=== PATIENT | male | born 1965 | race Caucasian/White ===

== ENCOUNTER 2018-03-08 16:08 | Inpatient (IN) | payer OTHER ==
[~2018-03-08] VITALS: Ht 182.9 cm; Wt 94.9 kg
[2018-03-08 17:32] LABS: BASOPHIL % 1.2 % (0-2); PLATELET COUNT 289 x10^3mcL (130-400)
[2018-03-08 17:37] LABS: CALCIUM 8.4 mg/dL (8.5-10.1); CARBON DIOXIDE 24.7 mmol/L (21-32); CHLORIDE SERUM 105 mmol/L (98-107); CREATININE SERUM 0.8 mg/dL (0.7-1.3); GFR1 > 60 mL/min; GLUCOSE SERUM 129 mg/dL (74-106); POTASSIUM SERUM 3.9 mmol/L (3.5-5.1); SODIUM SERUM 139 mmol/L (136-145)
[2018-03-08 17:40] LABS: RED CELL DISTRIBUTION WIDTH 15.8 % (11.5-14.5)
[2018-03-08 17:49] LABS: ALKALINE PHOSPHATASE 112 U/L (46-116); ALT/SGPT 21 U/L (16-63); AST/SGOT 15 U/L (15-37); BILIRUBIN TOTAL 0.21 mg/dL (0.20-1.00); TOTAL PROTEIN, SERUM 6.2 g/dL (6.4-8.2)
[2018-03-08 17:52] LABS: ALBUMIN 2.8 g/dL (3.4-5.0); T4(THYROXINE) 4.4 ug/dL (4.7-13.3)
[2018-03-08 19:31] LABS: AMPHETAMINE QUAL UR POSITIVE (See below)
[2018-03-09] MEDS ORDERED: SEROQUEL25 MG (15:37)
[2018-03-09] MEDS ORDERED: BUS5 (15:37)
[2018-03-09] MEDS ORDERED: ALPRAZOLAM1 MG (19:26)
[2018-03-09 19:42] VITALS: BP 123/76
[2018-03-10 06:08] VITALS: BP 109/68
[2018-03-10 07:35] LABS: CHOLESTEROL/HDL RATIO 2.9; MAGNESIUM 1.8 mg/dL (1.8-2.4); PHOSPHOROUS 3.2 mg/dL (2.5-4.9)
[2018-03-10 07:56] LABS: T3 TOTAL 0.69 ng/mL
[2018-03-10 10:17] VITALS: BP 119/74
[2018-03-10 11:17] LABS: FREE T4 0.76 ng/dL (0.76-1.46); FREE THYROXINE INDEX 1.9 ug/dL (1.4-4.5); T4(THYROXINE) 5.2 ug/dL (4.7-13.3)
[2018-03-10 13:40] VITALS: BP 128/76
[2018-03-10 14:42] VITALS: BP 137/80
[2018-03-10 18:06] VITALS: BP 123/77
[2018-03-10 22:45] VITALS: BP 109/78
[2018-03-11 05:36] VITALS: BP 110/81
[2018-03-11 08:00] VITALS: BP 118/71
[2018-03-11] MEDS ORDERED: DIL100 PO (12:27)
[2018-03-11] MEDS ORDERED: SERO100 PO (12:28)
[2018-03-11] MEDS ORDERED: BUS10 PO (12:31)
[2018-03-11 12:46] VITALS: BP 129/84
== END 2018-03-11 15:13 | disposition home or self-care (01) | DRG 52 ==
LOC: ED 16:08 → DU 19:28
PROVIDERS: Emergency Medicine; Family Medicine
DX: G92 Toxic encephalopathy (principal); E43 Unspecified severe protein-calorie malnutrition; R45.851 Suicidal ideations; F31.5 Bipolar disorder, current episode depressed, severe, with psychotic features; G90.8 Other disorders of autonomic nervous system; S09.90XA Unspecified injury of head, initial encounter; G40.909 Epilepsy, unspecified, not intractable, without status epilepticus; F10.10 Alcohol abuse, uncomplicated; F17.210 Nicotine dependence, cigarettes, uncomplicated; Y90.9 Presence of alcohol in blood, level not specified; E03.9 Hypothyroidism, unspecified; F41.1 Generalized anxiety disorder; M94.0 Chondrocostal junction syndrome [Tietze]; T43.625A Adverse effect of amphetamines, initial encounter; F14.90 Cocaine use, unspecified, uncomplicated; F12.90 Cannabis use, unspecified, uncomplicated; Z79.899 Other long term (current) drug therapy; Z88.0 Allergy status to penicillin; Z59.0 Homelessness; Y93.89 Activity, other specified; Y92.89 Other specified places as the place of occurrence of the external cause; Y99.8 Other external cause status; Z71.6 Tobacco abuse counseling; Z71.51 Drug abuse counseling and surveillance of drug abuser
CPT/HCPCS: 83880; 84439; G0480; J7030; J7050; Q0092